=== PATIENT | female | born 1985 | race Two or more races ===

== ENCOUNTER 2025-09-07 15:07 | Emergency (ER) | payer BC, SELFPAY ==
[2025-09-07 15:09] VITALS: BP 140/104
[2025-09-07 15:43] LABS: COVID-19 Antigen Negative (Negative)
[2025-09-07 19:11] VITALS: BP 111/74
[2025-09-07 19:12] VITALS: BMI 31.2
[2025-09-07 19:32] LABS: HCG, Serum Qualitative Screen Negative
[2025-09-07 19:34] LABS: Hematocrit 28.0 % (37.0-47.0); Hemoglobin 8.2 g/dL (12.0-16.0); Mean Corp Hgb Conc. 29.3 g/dL (33.0-37.0); Mean Corpuscular Volume 65.9 fL (81.0-99.0); Nucleated Red Blood Cells % 0 %; Platelet Count 227 10^3/uL (130-400); Red Cell Dist. Width 18.1 % (11.5-14.5)
[2025-09-07 19:35] LABS: C-Reactive Protein < 5.00 mg/L (0.0-10.00)
[2025-09-07 19:43] LABS: ALT (SGPT) 35 U/L (0-35); AST (SGOT) 39 U/L (14-36); Albumin 3.7 g/dl (3.5-5.0); Alkaline Phosphatase 49 U/L (38-126); Blood Urea Nitrogen 11 mg/dl (7-17); Calcium 9.4 mg/dl (8.4-10.2); Carbon Dioxide 25 mmol/L (22-30); Chloride 108 mmol/L (98-107); Estimated Creatinine Clearance 111 ml/min; Glucose 81 mg/dl (70-99); Potassium 4.0 mmol/L (3.5-5.1); Sodium 137 mmol/L (135-145); Total Protein 6.8 g/dl (6.3-8.2); eGFR > 60.00
[2025-09-07 20:26] LABS: Iron 30 ug/dl (37-170)
[2025-09-07 20:35] LABS: Total Iron Binding Capacity 450 ug/dl (265-497)
[2025-09-07 21:05] LABS: Ferritin 5.2 ng/ml (6.24-137)
[2025-09-07] MEDS: FEOSOL 325 MG PO (21:14)
--- NOTE | 2025-09-07 22:24 | ED.GENMED ---
History of Present Illness
General
Chief Complaint: Headache
Source: patient
Exam Limitations: none
Time Seen by Provider: 09/07/25 18:14
Nursing documentation reviewed up to this point in time: agreed with
History of Present Illness
History of Present Illness:
Patient to the emergency department with a complaint of a headache for 1 week. States pain starts at her forehead and continues around to the back of her head. She denies fever chills nausea vomiting or diarrhea. No recent illness. She was seen
by her primary care provider this week and was told that her symptoms were related to a viral illness. She has been taking Tylenol with temporary relief of her pain. She is brought to the emergency department by her for further evaluation
of her headaches since they are not subsiding. No history of trauma
Past History
Past History
ED Past Medical History: GERD
ED Past Surgical History: Gynecological
Review of Systems
Review of Systems
Allergies reviewed?: Yes
All Other Systems: ROS reviewed and negative except as documented in HPI and ROS
Constitutional: Reports no symptoms
EENT: Reports no symptoms
Respiratory: Reports no symptoms
Cardiac: Reports no symptoms
ABD/GI: Reports no symptoms
: Reports no symptoms
Musculoskeletal: Reports no symptoms
Skin: Reports no symptoms
Neurological: Reports headache
Psychiatric: Reports no symptoms
Phy Exam
General Physical Exam
General Presentation: well appearing and no apparent distress
General age: appears stated age
General Skin: warm and dry
General Habitus: normal
General Mental: alert
Cardiovascular Exam
Cardiovascular Exam: regular rate/rhythm and no edema
Pulmonary Exam
Pulmonary Exam: lungs clear and no respiratory distress
Gastrointestinal Exam
Gastrointestinal Exam: non tender and soft
Neurological Exam
Neurological Exam: alert, oriented x3, CN II-XII intact, no motor deficits, no sensory deficits, speech normal and normal gait
Nick[place] Coma Scale
Eye Opening: Spontaneous
Verbal Response: Oriented
Motor Response: Obeys Commands
GCS Total Score: 15
Musculoskeletal Exam
Musculoskeletal Exam: full ROM, no edema and neuro vasc intact
Skin Exam
Skin Exam: normal color, warm/dry and no rash
Psychiatric Exam
Psychiatric Exam: normal mood/affect
Course
Orders/Labs/Results
Orders:
Orders
09/07/25 15:13
US Periph Venous LOWER Ext LT Urgent
Comment:
Reason For Exam: left calf pain for 3 days
09/07/25 15:15
COVID-19 Antigen Urgent
Source: Nasal Swab
Influenza A+B Rapid Molecular Urgent
GARY Source: Nasal Swab
Specimen Description:
09/07/25 18:21
CT Head W/o Iv Contrast Urgent
Comment:
Reason For Exam: pain
Test Result ONCE
09/07/25 19:01
CRP [C-Reactive Protein] Urgent
Complete Blood Count/With Diff Urgent
Comprehensive Metabolic Panel Urgent
Ferritin Urgent
Comment: ADDON
HCG, Serum Qualitative Screen Urgent
Iron Urgent
Comment: ADDON
Sed Rate [Erythrocyte Sed Rate] Urgent
Total Iron Binding Urgent
Comment: ADDON
09/07/25 19:48
Add On- LAB Urgent
Tests Added?: Ferritin, TIBC, iron
09/07/25 20:59
Ferrous Sulfate [Feosol] 325 mg PO NOW STA
Abnormal Lab Results
09/07/25
19:01
Hgb 8.2 L g/dL
(12.0-16.0)
Hct 28.0 L %
(37.0-47.0)
MCV 65.9 L fL
(81.0-99.0)
MCH 19.3 L pg
(27.0-31.0)
MCHC 29.3 L g/dL
(33.0-37.0)
RDW 18.1 H %
(11.5-14.5)
ESR 55 H mm/hour
(0-20)
Chloride 108 H mmol/L
(98-107)
Creatinine 0.5 L mg/dL
(0.6-1.0)
Iron 30 L ug/dl
(37-170)
% Saturation 6 L %
(20-50)
Ferritin 5.2 L ng/ml
(6.24-137)
AST 39 H U/L
(14-36)
09/07/25 19:01
09/07/25 19:01
Vital Signs
Initial and Last Documented VS:
Initial Vital Signs
Temp Pulse Resp BP Pulse Ox
98.7 F 83 17 140/104 99
09/07/25 15:09 09/07/25 15:09 09/07/25 15:09 09/07/25 15:09 09/07/25 15:09
Last Documented Vital Signs
Temp Pulse Resp BP Pulse Ox
98.2 F 83 17 111/74 99
09/07/25 19:40 09/07/25 15:09 09/07/25 15:09 09/07/25 19:11 09/07/25 19:30
*Radiology
Radiology exam reviewed: radiology read reviewed
*Pulse Oximetry
SaO2: 99
Oxygen Mode of Delivery: Room air
Patient hypoxic: no
*Critical Care Note
Total Time (30-74mins, 75-104mins- exclusive of procedures): Not Applicable
Update Note
Update Note:
Patient to the emergency department for report of a headache for 1 week. No associated fever or chills nausea vomiting diarrhea. No changes in vision. No dizziness. CT of head report reviewed no acute findings noted. Labs reviewed. Hemoglobin
of 8.2 hematocrit 28.0. Iron level 30 ferritin 5.2 iron saturation 6%. Discussed findings with Dr. Pedraza. Will start ferrous sulfate daily. First dose given in the emergency department. Discussed findings with the patient. She reports
normal period last month but then repeat bleeding 2 weeks later. Currently no active bleeding. 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 She will also follow-up with her family doctor for further monitoring of her low hemoglobin
hematocrit levels. She will continue to take Tylenol for her headaches and follow-up closely with her primary care provider. Neurologically she is at her baseline. Neuroexam was unremarkable. She was given instructions on signs and symptoms to
return to the emergency department and she is agreeable to this plan
ED Attending Note
-
Portions of this chart may have been created with voice recognition software.� Occasional wrong word or��sound alike� substitutions may have occurred due to the inherent limitations of voice recognition software.
Discharge Plan
Departure
Patient Disposition: Home (Routine Discharge)
Date of Disposition: 09/07/25
Time of Disposition: 21:00
Patient with high blood pressure during this ER visit?: No
Condition: Good
Covid-19: Not Applicable
Discharge Problem:
Anemia
Instructions: Anemia in adults, possibly from low iron - ED (DC)
Prescriptions:
New
ferrous sulfate 325 mg (65 mg iron) tablet,delayed release (DR/EC)
325 mg PO DAILY Qty: 30 0RF
Referrals:
Saritha Lawson CRNP [Family Provider, Family Practice] - Call in 1-3 days for appt
Interventions
Interventions:
*Risk Screen - Suicide Last Done: 09/07/25 15:12
*General Assessment Last Done: 09/07/25 15:12
*Neglect/Abuse Screening Last Done: 09/07/25 15:12
*ED- Fall Risk Assessment Last Done: 09/07/25 21:20
*ED COVID-19 Vaccine History Last Done: 09/07/25 15:12
*ED Influenza Vaccine History Last Done: 09/07/25 15:12
*Nursing Disposition Last Done: 09/07/25 21:20
ED- Neurological Assessment Last Done: 09/07/25 18:59
Discharge Date and Time
Discharge Date/Time: 09/07/25 21:23
Print Language: CUBAN
== END 2025-09-07 21:23 | disposition home or self-care (01) ==
LOC: EMR 15:07
PROVIDERS: Emergency Medicine; Nurse Practitioner; EMERGENCY PHYSICIAN Emergency Medicine; FAMILY PHYSICIAN Nurse Practitioner Family
DX: D64.9 Anemia, unspecified (principal); R51.9 Headache, unspecified; M79.662 Pain in left lower leg; Z11.52 Encounter for screening for COVID-19
CPT/HCPCS: 99284; 70450; 80053; 82728; 83540; 83550; 84703; 85025; 85652; 86140; 87502; 87811; 93971